=== PATIENT | female | born 1950 | race Asian ===

== ENCOUNTER → 2017-04-13 | Outpatient (CLI) | payer MEDICARE, OTHER ==
[~2017-04-13] MED LIST: PERCOCET 5/31 TABLET PO
== END | disposition home or self-care (01) ==
LOC: CDC 13:53
DX: Z01.810 Encounter for preprocedural cardiovascular examination (principal); S52.571A Other intraarticular fracture of lower end of right radius, initial encounter for closed fracture; M25.531 Pain in right wrist; R94.31 Abnormal electrocardiogram [ECG] [EKG]
CPT/HCPCS: 93000